=== PATIENT | female | born 1945 | race Caucasian/White ===

== ENCOUNTER → 2017-02-13 | Outpatient (CLI) | payer MEDICARE ==
[~2017-02-13] MED LIST: CLON0.2T PO; CYAN1TAB29 PO; GLUC-88 PO; LOSA25TA5 PO; LOVA20TA2 PO; MULT-717 PO
[2017-02-13 10:44] LABS: ASPARTATE AMINO TRANSFERASE 16 U/L (15-37); BLOOD UREA NITROGEN 25 mg/dL (7-18)
== END | disposition home or self-care (01) ==
LOC: STAR 09:16
PROVIDERS: ATTEND Surgery
DX: Z01.818 Encounter for other preprocedural examination (principal); I51.7 Cardiomegaly
CPT/HCPCS: 36415; 71020; 80053; 85025; 93005

== ENCOUNTER 2017-02-27 05:56 | Day surgery (SDC) | payer MEDICARE ==
[~2017-02-27] VITALS: Ht 157.5 cm; Wt 76.0 kg
[2017-02-27] MEDS ORDERED: BUPIVACAINE/PF-EPI 0.5% 1:200K ONE (06:10)
[2017-02-27] MEDS ORDERED: LACTATED RINGERS 1,000 ML IV SCH (06:12)
[2017-02-27 06:24] VITALS: BP 131/83
[2017-02-27] MEDS ORDERED: FENTANYL PF 250 MCG/5ML ONE (07:14)
[2017-02-27] MEDS ORDERED: BUPIVACAINE/PF 0.5% ONE (07:26)
[2017-02-27] MEDS ORDERED: HYDROcodone/APAP 7.5-325MG/15ML UDC PO PRN (07:30)
[2017-02-27] MEDS ORDERED: LABETALOL 5MG/ML, 20ML IV PRN (07:30)
[2017-02-27] MEDS ORDERED: EPHEDRINE 50 MG/ML, 1ML IVPush PRN (07:30)
[2017-02-27] MEDS ORDERED: HYDROmorphone 1 MG/ML, 1ML IV PRN (07:30)
[2017-02-27] MEDS ORDERED: FENTANYL PF 100 MCG/2ML IV PRN (07:30)
[2017-02-27] MEDS ORDERED: PROMETHAZINE 25 MG/ML, 1ML IV PRN (07:30)
[2017-02-27] MEDS ORDERED: OXYcodone 5 MG/5 ML ORAL.SOL UDC PO PRN (07:30)
[2017-02-27] MEDS ORDERED: ONDANSETRON 2MG/ML, 2ML IVPush PRN (07:30)
[2017-02-27] MEDS ORDERED: hydrALAzine 20 MG/ML, 1ML IV PRN (07:30)
[2017-02-27] MEDS ORDERED: ACETAMINOPHEN 325 MG TABLET PO PRN (07:30)
[2017-02-27] MEDS ORDERED: ACETAMINOPHEN 325 MG TABLET ONE (08:25)
[2017-02-27] MEDS ORDERED: OXYcodone 5 MG/5 ML ORAL.SOL UDC ONE (08:26)
[2017-02-27] MEDS ORDERED: PROPOFOL 10 MG/ML, 20ML ONE (10:59)
[2017-02-27] MEDS ORDERED: SUCCINYLCHOLINE 20 MG/ML, 10ML ONE (10:59)
[2017-02-27] MEDS ORDERED: KETOROLAC 30 MG/1 ML ONE (10:59)
[2017-02-27] MEDS ORDERED: EPHEDRINE 50 MG/ML, 1ML ONE (10:59)
[2017-02-27] MEDS ORDERED: GLYCOPYRROLATE 0.2MG/1ML ONE (10:59)
[2017-02-27] MEDS ORDERED: NEOSTIGMINE 1 MG/ML, 10ML ONE (10:59)
[2017-02-27] MEDS ORDERED: DEXAMETHASONE 4 MG/ML, 1ML ONE (10:59)
[2017-02-27] MEDS ORDERED: CEFOTETAN 2 GM ONE (10:59)
[2017-02-27] MEDS ORDERED: ROCURONIUM 10 MG/ML ONE (10:59)
[2017-02-27] MEDS ORDERED: ONDANSETRON 2MG/ML, 2ML ONE (10:59)
== END 2017-02-27 11:15 ==
LOC: OUT 05:56
PROVIDERS: ATTEND Surgery
DX: K35.80 Unspecified acute appendicitis (principal); I10 Essential (primary) hypertension; E78.00 Pure hypercholesterolemia, unspecified; E89.0 Postprocedural hypothyroidism; Z87.39 Personal history of other diseases of the musculoskeletal system and connective tissue; Z98.890 Other specified postprocedural states; Z88.8 Allergy status to other drugs, medicaments and biological substances; Z91.018 Allergy to other foods; Z72.89 Other problems related to lifestyle; Z87.891 Personal history of nicotine dependence
CPT/HCPCS: 44970; 88304; J0330; J1100; J1885; J2405; J2704; J2710; J3010; J3490; J7120; S0074

== ENCOUNTER → 2017-11-17 | Outpatient (CLI) | payer MEDICARE ==
[~2017-11-17] MED LIST changes: +OMNIPAQUE 350 MG/ML, 75ML BOTTLE ONE
== END | disposition home or self-care (01) ==
LOC: CFH 08:59
PROVIDERS: ATTEND Nurse Practitioner Primary Care
DX: R93.8 Abnormal findings on diagnostic imaging of other specified body structures (principal); I10 Essential (primary) hypertension; E78.2 Mixed hyperlipidemia; Z86.61 Personal history of infections of the central nervous system
CPT/HCPCS: 71260; 82565; Q9967

== ENCOUNTER 2017-11-25 09:21 | Day surgery (SDC) | payer MEDICARE ==
[2017-11-24 11:13] LABS: BASOPHILS # (AUTO) 0.01 x10^3/uL (0-0.1); BASOPHILS % (AUTO) 0 % (0-1); EOSINOPHILS # (AUTO) 0.04 x10^3/uL (0-0.4); EOSINOPHILS % (AUTO) 0 % (1-7); LYMPHOCYTES # (AUTO) 1.15 x10^3/uL (1-3.4); LYMPHOCYTES % (AUTO) 12 % (22-44); MD NO; MEAN CORPUSCULAR HEMOGLOBIN 29.9 pg (27.0-34.8); MEAN CORPUSCULAR HGB CONC 33.1 g/dL (32.4-35.8); MEAN CORPUSCULAR VOLUME 90.1 fL (80-100); MEAN PLATELET VOLUME 7.5 fL (7.4-10.4); MONOCYTES # (AUTO) 0.09 x10^3/uL (0.2-0.8); MONOCYTES % (AUTO) 1 % (2-9); NEUTROPHILS # (AUTO) 8.39 x10^3/uL (1.8-6.8); NEUTROPHILS % (AUTO) 87 % (42-75); PLATELET COUNT 267 x10^3/uL (130-400); RED BLOOD COUNT 4.77 x10^6/uL (3.82-5.3); RED CELL DISTRIBUTION WIDTH 14.8 % (9.6-15.2)
[2017-11-24 11:22] LABS: INTERNATIONAL NORMALIZED RATIO 0.95 (0.93-1.1); PROTHROMBIN TIME 9.8 Seconds (9.6-11.5)
[~2017-11-25] VITALS: Ht 157.5 cm; Wt 77.2 kg
[~2017-11-25 09:21] MED LIST changes: +LIDOCAINE 2%, 20ML ONE; +LIDOCAINE 4% TOPICAL SOLUTION 50 ML ONE; +LIDOCAINE GEL 2%, 5ML ONE; -OMNIPAQUE 350 MG/ML, 75ML BOTTLE ONE
[2017-11-25 09:52] VITALS: BP 105/98
[2017-11-25] MEDS ORDERED: SODIUM CHLORIDE 0.9% 1,000 ML IV SCH (09:55)
[2017-11-25] MEDS ORDERED: FENTANYL PF 100 MCG/2ML ONE (11:28)
[2017-11-25] MEDS ORDERED: MIDAZOLAM 1 MG/ML, 2ML ONE (11:28)
[2017-11-25] MEDS ORDERED: ALBUTEROL SULFATE 2.5 MG/3 ML ONE (14:10)
[2017-11-25] MEDS ORDERED: ALBUTEROL SULFATE 2.5 MG/3 ML NPPB PRN (14:30)
== END 2017-11-25 15:00 ==
LOC: OUT 09:21
PROVIDERS: ATTEND Internal Medicine
DX: C34.01 Malignant neoplasm of right main bronchus (principal); Z88.2 Allergy status to sulfonamides; Z88.1 Allergy status to other antibiotic agents; Z88.8 Allergy status to other drugs, medicaments and biological substances; Z87.891 Personal history of nicotine dependence
CPT/HCPCS: 31625; 36415; 85025; 85610; 85730; 88172; 88173; 88305; 94640; 99152; 99153; J2250; J3010; J3490

== ENCOUNTER 2017-11-26 09:25 | Inpatient (IN) | payer MEDICARE ==
[~2017-11-26] VITALS: Ht 157.5 cm; Wt 77.9 kg
[~2017-11-26 09:25] MED LIST changes: -LIDOCAINE 2%, 20ML ONE; -LIDOCAINE 4% TOPICAL SOLUTION 50 ML ONE; -LIDOCAINE GEL 2%, 5ML ONE
[2017-11-26] MEDS ORDERED: SODIUM CHLORIDE FLUSH 10ML SYR IVF ONE (10:30)
[2017-11-26 10:58] LABS: BASOPHILS # (AUTO) 0.03 x10^3/uL (0-0.1); BASOPHILS % (AUTO) 0 % (0-1); EOSINOPHILS % (AUTO) 1 % (1-7); LYMPHOCYTES # (AUTO) 1.86 x10^3/uL (1-3.4); LYMPHOCYTES % (AUTO) 22 % (22-44); MD NO; MEAN CORPUSCULAR HEMOGLOBIN 29.8 pg (27.0-34.8); MEAN CORPUSCULAR HGB CONC 33.2 g/dL (32.4-35.8); MEAN CORPUSCULAR VOLUME 89.8 fL (80-100); MEAN PLATELET VOLUME 7.7 fL (7.4-10.4); MONOCYTES # (AUTO) 0.52 x10^3/uL (0.2-0.8); MONOCYTES % (AUTO) 6 % (2-9); NEUTROPHILS # (AUTO) 5.98 x10^3/uL (1.8-6.8); NEUTROPHILS % (AUTO) 70 % (42-75); PLATELET COUNT 264 x10^3/uL (130-400); RED BLOOD COUNT 4.67 x10^6/uL (3.82-5.3); RED CELL DISTRIBUTION WIDTH 14.7 % (9.6-15.2)
[2017-11-26 11:07] LABS: ALBUMIN 3.6 g/dL (3.4-5.0); ANION GAP 7 mmol/L (5-15); CALCIUM 9.3 mg/dL (8.5-10.1); CHLORIDE 107 mmol/L (98-107); CREATININE 1.06 mg/dL (0.55-1.02)
[2017-11-26 11:10] LABS: TROPONIN I < 0.015 ng/mL (0.000-0.045)
[2017-11-26] MEDS ORDERED: OMNIPAQUE 350 MG/ML, 100ML BOTTLE ONE (12:01)
[2017-11-26] MEDS ORDERED: LORazepam 2 MG/ML, 1ML IVPush ONE (13:00)
[2017-11-26] MEDS ORDERED: methylPREDNISolone SOD SUCC 125 MG/2 ML IVPush ONE (13:00)
[2017-11-26] MEDS ORDERED: methylPREDNISolone SOD SUCC 125 MG/2 ML ONE (13:10)
[2017-11-26] MEDS ORDERED: LORazepam 2 MG/ML, 1ML ONE (13:11)
[2017-11-26] MEDS ORDERED: LABETALOL 5MG/ML, 20ML IVPush PRN (14:00)
[2017-11-26] MEDS ORDERED: ONDANSETRON 2MG/ML, 2ML IVPush PRN (14:00)
[2017-11-26] MEDS ORDERED: POLYETHYLENE GLYCOL 17 GM PACKET PO PRN (14:00)
[2017-11-26] MEDS ORDERED: ONDANSETRON ODT 4 MG PO PRN (14:00)
[2017-11-26] MEDS ORDERED: HYDROcodone/APAP 5/325 TABLET PO PRN (14:00)
[2017-11-26 14:42] VITALS: BP 102/66
[2017-11-26] MEDS ORDERED: ALBUTEROL SULFATE 2.5 MG/3 ML NPPB PRN (15:00)
[2017-11-26] MEDS: methylPREDNISolone SOD SUCC 125 MG/2 ML IVPush SCH (18:07)
[2017-11-26 20:00] VITALS: BP 118/77
[2017-11-26] MEDS: FAMOTIDINE 20 MG/2 ML IVPush SCH (20:23)
[2017-11-26] MEDS: LOVASTATIN 20 MG TABLET PO SCH (20:23)
[2017-11-26] MEDS: ENOXAPARIN 40 MG/0.4 ML SQ SCH (20:24)
[2017-11-26 21:20] LABS: CLOSTRIDIUM DIFFICILE ANTIGEN NEGATIVE; CLOSTRIDIUM DIFFICILE TOXIN NEGATIVE (Negative)
[2017-11-27] MEDS: methylPREDNISolone SOD SUCC 125 MG/2 ML IVPush SCH ×2 (00:01→05:57)
[2017-11-27 02:00] VITALS: BP 109/71
[2017-11-27 05:28] LABS: ALBUMIN 3.2 g/dL (3.4-5.0); ANION GAP 8 mmol/L (5-15); CALCIUM 8.9 mg/dL (8.5-10.1); CHLORIDE 108 mmol/L (98-107)
[2017-11-27 05:32] LABS: BASOPHILS # (AUTO) 0.01 x10^3/uL (0-0.1); BASOPHILS % (AUTO) 0 % (0-1); EOSINOPHILS % (AUTO) 0 % (1-7); LYMPHOCYTES # (AUTO) 0.83 x10^3/uL (1-3.4); LYMPHOCYTES % (AUTO) 13 % (22-44); MD NO; MEAN CORPUSCULAR HEMOGLOBIN 30.1 pg (27.0-34.8); MEAN CORPUSCULAR HGB CONC 33.4 g/dL (32.4-35.8); MEAN CORPUSCULAR VOLUME 90.1 fL (80-100); MEAN PLATELET VOLUME 7.7 fL (7.4-10.4); MONOCYTES # (AUTO) 0.14 x10^3/uL (0.2-0.8); MONOCYTES % (AUTO) 2 % (2-9); NEUTROPHILS # (AUTO) 5.57 x10^3/uL (1.8-6.8); NEUTROPHILS % (AUTO) 85 % (42-75); PLATELET COUNT 242 x10^3/uL (130-400); RED BLOOD COUNT 4.41 x10^6/uL (3.82-5.3); RED CELL DISTRIBUTION WIDTH 14.4 % (9.6-15.2)
[2017-11-27 05:59] LABS: ALANINE AMINOTRANSFERASE 34 U/L (12-78); ALKALINE PHOSPHATASE 84 U/L (45-117); BILIRUBIN,TOTAL 0.5 mg/dL (0.2-1.0); CREATININE 1.02 mg/dL (0.55-1.02); TOTAL PROTEIN 7.4 g/dL (6.4-8.2)
[2017-11-27 07:09] VITALS: BP 112/63
[2017-11-27] MEDS ORDERED: GADOBUTROL 7.5 MMOL/7.5 ML PFS ONE (07:58)
[2017-11-27] MEDS ORDERED: [UNRECOGNIZED DRUG - OTHER] PO SCH (09:00)
[2017-11-27] MEDS ORDERED: TEMPLATE NON-FORMULARY MED. (Cyanocobalamin/Folic Acid** (Vitamin B12-Folic Acid Tablet**) PO SCH (09:00)
[2017-11-27 09:38] VITALS: BP 148/82
[2017-11-27] MEDS: MULTIVITAMINS/MINERALS TABLET PO SCH (09:50)
[2017-11-27] MEDS: SENNA/DOCUSATE TABLET PO SCH (09:50)
[2017-11-27] MEDS: LOSARTAN 25MG TABLET PO SCH (09:50)
[2017-11-27] MEDS: FAMOTIDINE 20 MG/2 ML IVPush SCH (09:51)
[2017-11-27 12:50] VITALS: BP 104/64
[2017-11-27 19:19] VITALS: BP 143/76
[2017-11-27] MEDS: LOVASTATIN 20 MG TABLET PO SCH (21:00)
[2017-11-27] MEDS: ENOXAPARIN 40 MG/0.4 ML SQ SCH (21:00)
[2017-11-27] MEDS: FAMOTIDINE 20 MG TABLET PO SCH (21:00)
[2017-11-28 01:30] VITALS: BP 135/73
[2017-11-28 04:52] LABS: ALBUMIN 3.2 g/dL (3.4-5.0); ANION GAP 8 mmol/L (5-15); CALCIUM 9.2 mg/dL (8.5-10.1); CHLORIDE 109 mmol/L (98-107); CREATININE 0.89 mg/dL (0.55-1.02)
[2017-11-28 05:12] LABS: BASOPHILS # (AUTO) 0.02 x10^3/uL (0-0.1); BASOPHILS % (AUTO) 0 % (0-1); EOSINOPHILS % (AUTO) 0 % (1-7); LYMPHOCYTES # (AUTO) 1.62 x10^3/uL (1-3.4); LYMPHOCYTES % (AUTO) 12 % (22-44); MD NO; MEAN CORPUSCULAR HEMOGLOBIN 29.9 pg (27.0-34.8); MEAN CORPUSCULAR HGB CONC 33.2 g/dL (32.4-35.8); MEAN CORPUSCULAR VOLUME 89.9 fL (80-100); MEAN PLATELET VOLUME 7.6 fL (7.4-10.4); MONOCYTES # (AUTO) 0.59 x10^3/uL (0.2-0.8); MONOCYTES % (AUTO) 4 % (2-9); NEUTROPHILS % (AUTO) 84 % (42-75); PLATELET COUNT 252 x10^3/uL (130-400); RED BLOOD COUNT 4.23 x10^6/uL (3.82-5.3); RED CELL DISTRIBUTION WIDTH 14.8 % (9.6-15.2)
[2017-11-28] MEDS ORDERED: POTASSIUM CHLORIDE 20 MEQ TAB.ER.PRT PO ONE ×2 (06:30→10:30)
[2017-11-28 07:35] VITALS: BP 140/75
[2017-11-28] MEDS: SENNA/DOCUSATE TABLET PO SCH (07:48)
[2017-11-28] MEDS: FAMOTIDINE 20 MG TABLET PO SCH (07:48)
[2017-11-28] MEDS: LOSARTAN 25MG TABLET PO SCH (07:48)
[2017-11-28] MEDS: MULTIVITAMINS/MINERALS TABLET PO SCH (07:48)
[2017-11-28] MEDS ORDERED: GUAIFENESIN/DM 200-20MG, 10ML UDC PO PRN (09:30)
[2017-11-28] MEDS ORDERED: PRED10TA PO (11:41)
[2017-11-28] MEDS ORDERED: IPRA3AMP INH (11:43)
== END 2017-11-28 13:20 | disposition home or self-care (01) | DRG 180 ==
LOC: ED 12:24 → EDIP 13:08 → 3NW 13:42 → DCLOUNGE 11-28 12:49
PROVIDERS: ADMIT Hospitalist; ATTEND Hospitalist
DX: C34.90 Malignant neoplasm of unspecified part of unspecified bronchus or lung (principal); J96.01 Acute respiratory failure with hypoxia; I31.3 Pericardial effusion (noninflammatory); J44.1 Chronic obstructive pulmonary disease with (acute) exacerbation; E78.5 Hyperlipidemia, unspecified; R19.7 Diarrhea, unspecified; M19.90 Unspecified osteoarthritis, unspecified site; I10 Essential (primary) hypertension; Z66 Do not resuscitate; Z80.1 Family history of malignant neoplasm of trachea, bronchus and lung; Z82.49 Family history of ischemic heart disease and other diseases of the circulatory system; Z87.891 Personal history of nicotine dependence; Z90.49 Acquired absence of other specified parts of digestive tract; Z88.8 Allergy status to other drugs, medicaments and biological substances
CPT/HCPCS: 36415; 70553; 71275; 80048; 80053; 82040; 83735; 83880; 84100; 84439; 84484; 85025; 87324; 89055; 93005; 93306; 94640; 96374; 96375; A9585; J1650; J7613; Q9967; J2060; J2930; J7512; S0028

== ENCOUNTER → 2017-12-02 | Outpatient (CLI) | payer MEDICARE ==
[~2017-12-02] MED LIST changes: +IPRA3AMP INH; +PRED10TA PO
== END | disposition home or self-care (01) ==
LOC: ROC 10:38
PROVIDERS: ATTEND Radiology Radiation Oncology
DX: C34.90 Malignant neoplasm of unspecified part of unspecified bronchus or lung (principal); I10 Essential (primary) hypertension; F41.9 Anxiety disorder, unspecified; E78.5 Hyperlipidemia, unspecified
CPT/HCPCS: G0463

== ENCOUNTER → 2017-12-08 | Outpatient (CLI) | payer MEDICARE | LOC: RAD 12:42 | PROVIDERS: ATTEND Nurse Practitioner | DX: R91.8 Other nonspecific abnormal finding of lung field (principal); R06.02 Shortness of breath; R05 Cough; Z85.118 Personal history of other malignant neoplasm of bronchus and lung | CPT/HCPCS: 71046 ==

== ENCOUNTER → 2018-01-09 | Outpatient (CLI) | payer MEDICARE ==
[2018-01-09 13:01] LABS: CULTURE INDICATED? YES; MICROSCOPIC INDICATED
== END ==
LOC: CFH 10:46
PROVIDERS: ATTEND Radiology Radiation Oncology
DX: C34.11 Malignant neoplasm of upper lobe, right bronchus or lung (principal); R35.0 Frequency of micturition
CPT/HCPCS: 81001; 87077; 87086; 87186

== ENCOUNTER 2018-02-07 21:45 | Emergency (ER) | payer MEDICARE ==
[~2018-02-07] VITALS: Ht 157.5 cm; Wt 75.0 kg
[~2018-02-07 21:45] MED LIST changes: +CEFD300C37 PO; +CETI10TA24 PO; +HYDR12.58 PO; +LOSA1TAB7 PO; +METO25TA35 PO
[2018-02-07] MEDS ORDERED: HYDROcodone/APAP 5/325 TABLET PO ONE (22:30)
[2018-02-07] MEDS ORDERED: HYDROcodone/APAP 5/325 TABLET ONE (22:35)
[2018-02-07 23:43] VITALS: BP 111/48
== END 2018-02-07 23:52 | disposition home or self-care (01) ==
LOC: ED 22:17
DX: M54.2 Cervicalgia (principal); I10 Essential (primary) hypertension; J44.9 Chronic obstructive pulmonary disease, unspecified
CPT/HCPCS: 70450; 99284

== ENCOUNTER → 2018-03-10 | Outpatient (CLI) | payer MEDICARE ==
[~2018-03-10] MED LIST changes: +OMNIPAQUE 350 MG/ML, 100ML BOTTLE ONE
== END | disposition home or self-care (01) ==
LOC: CFH 11:02
PROVIDERS: ATTEND Radiology Radiation Oncology
DX: J98.11 Atelectasis (principal); C34.11 Malignant neoplasm of upper lobe, right bronchus or lung
CPT/HCPCS: 71260; Q9967

== ENCOUNTER → 2018-03-11 | Outpatient (CLI) | payer MEDICARE ==
[~2018-03-11] MED LIST changes: -OMNIPAQUE 350 MG/ML, 100ML BOTTLE ONE
== END | disposition home or self-care (01) ==
LOC: ROC 07:38
PROVIDERS: ATTEND Radiology Radiation Oncology
DX: Z08 Encounter for follow-up examination after completed treatment for malignant neoplasm (principal); C34.11 Malignant neoplasm of upper lobe, right bronchus or lung
CPT/HCPCS: G0463

== ENCOUNTER 2018-05-14 11:20 | Emergency (ER) | payer MEDICARE ==
[~2018-05-14] VITALS: Ht 157.5 cm; Wt 72.6 kg
[~2018-05-14 11:20] MED LIST changes: -IPRA3AMP INH; +IPRA3AMP30 INH
[2018-05-14 12:22] LABS: BASOPHILS # (AUTO) 0.03 x10^3/uL (0-0.1); BASOPHILS % (AUTO) 1 % (0-1); EOSINOPHILS # (AUTO) 0.35 x10^3/uL (0-0.4); EOSINOPHILS % (AUTO) 6 % (1-7); LYMPHOCYTES # (AUTO) 0.81 x10^3/uL (1-3.4); LYMPHOCYTES % (AUTO) 13 % (22-44); MD NO; MEAN CORPUSCULAR HGB CONC 33.7 g/dL (32.4-35.8); MEAN CORPUSCULAR VOLUME 94.8 fL (80-100); MEAN PLATELET VOLUME 7.4 fL (7.4-10.4); MONOCYTES # (AUTO) 0.56 x10^3/uL (0.2-0.8); MONOCYTES % (AUTO) 9 % (2-9); NEUTROPHILS # (AUTO) 4.67 x10^3/uL (1.8-6.8); NEUTROPHILS % (AUTO) 73 % (42-75); PLATELET COUNT 339 x10^3/uL (130-400); RED BLOOD COUNT 3.39 x10^6/uL (3.82-5.3); RED CELL DISTRIBUTION WIDTH 17.3 % (9.6-15.2)
[2018-05-14 12:30] LABS: ALANINE AMINOTRANSFERASE 16 U/L (12-78); ANION GAP 9 mmol/L (5-15); CALCIUM 8.9 mg/dL (8.5-10.1); CHLORIDE 104 mmol/L (98-107); CREATININE 0.99 mg/dL (0.55-1.02)
[2018-05-14 12:34] LABS: ALKALINE PHOSPHATASE 86 U/L (45-117); BILIRUBIN,TOTAL 0.3 mg/dL (0.2-1.0); TOTAL PROTEIN 7.6 g/dL (6.4-8.2); TROPONIN I < 0.015 ng/mL (0.000-0.045)
[2018-05-14 12:35] LABS: D-DIMER 1.33 ug/mlFEU (0.00-0.52); INTERNATIONAL NORMALIZED RATIO 1.04 (0.93-1.1); PROTHROMBIN TIME 10.7 Seconds (9.6-11.5)
[2018-05-14] MEDS ORDERED: OMNIPAQUE 350 MG/ML, 100ML BOTTLE ONE (13:32)
[2018-05-14] MEDS ORDERED: ONDANSETRON ODT 4 MG ONE (14:02)
[2018-05-14] MEDS ORDERED: KETOROLAC 30 MG/1 ML ONE (14:02)
[2018-05-14 14:20] VITALS: BP 130/85
[2018-05-14] MEDS ORDERED: DOXYCYCLINE 100MG TABLET PO ONE (14:30)
[2018-05-14] MEDS ORDERED: DOXYCYCLINE 100MG TABLET ONE (14:33)
== END 2018-05-14 14:42 | disposition home or self-care (01) ==
LOC: ED 13:52
DX: S22.39XA Fracture of one rib, unspecified side, initial encounter for closed fracture (principal); J15.9 Unspecified bacterial pneumonia; I10 Essential (primary) hypertension; E11.9 Type 2 diabetes mellitus without complications; X58.XXXA Exposure to other specified factors, initial encounter; Y93.9 Activity, unspecified; Y99.8 Other external cause status; Y92.89 Other specified places as the place of occurrence of the external cause
CPT/HCPCS: 36415; 71046; 71275; 80053; 83880; 84484; 85025; 85379; 85610; 85730; 93005; 99285; Q9967

== ENCOUNTER 2018-05-20 07:31 | Inpatient (IN) | payer MEDICARE ==
[~2018-05-20] VITALS: Ht 157.5 cm; Wt 72.6 kg
[2018-05-20] MEDS ORDERED: SODIUM CHLORIDE 0.9% 1,000 ML IV ONE (08:14)
[2018-05-20] MEDS ORDERED: SODIUM CHLORIDE FLUSH 10ML SYR IVF ONE (08:30)
[2018-05-20 08:49] LABS: BASOPHILS # (AUTO) 0.01 x10^3/uL (0-0.1); BASOPHILS % (AUTO) 0 % (0-1); EOSINOPHILS # (AUTO) 0.37 x10^3/uL (0-0.4); EOSINOPHILS % (AUTO) 4 % (1-7); LYMPHOCYTES # (AUTO) 0.59 x10^3/uL (1-3.4); LYMPHOCYTES % (AUTO) 7 % (22-44); MD NO; MEAN CORPUSCULAR HEMOGLOBIN 30.8 pg (27.0-34.8); MEAN CORPUSCULAR VOLUME 93.3 fL (80-100); MEAN PLATELET VOLUME 7.3 fL (7.4-10.4); MONOCYTES # (AUTO) 0.57 x10^3/uL (0.2-0.8); MONOCYTES % (AUTO) 7 % (2-9); NEUTROPHILS # (AUTO) 7.25 x10^3/uL (1.8-6.8); NEUTROPHILS % (AUTO) 82 % (42-75); PLATELET COUNT 376 x10^3/uL (130-400); RED BLOOD COUNT 3.64 x10^6/uL (3.82-5.3); RED CELL DISTRIBUTION WIDTH 17.3 % (9.6-15.2)
[2018-05-20 08:59] LABS: ALANINE AMINOTRANSFERASE 17 U/L (12-78); ALBUMIN 2.9 g/dL (3.4-5.0); ANION GAP 9 mmol/L (5-15); CALCIUM 9.7 mg/dL (8.5-10.1); CHLORIDE 106 mmol/L (98-107)
[2018-05-20 09:03] LABS: ALKALINE PHOSPHATASE 83 U/L (45-117); BILIRUBIN,TOTAL 0.4 mg/dL (0.2-1.0); TOTAL PROTEIN 7.7 g/dL (6.4-8.2); TROPONIN I < 0.015 ng/mL (0.000-0.045)
[2018-05-20] MEDS ORDERED: GADOBUTROL 7.5 MMOL/7.5 ML PFS ONE (09:39)
[2018-05-20] MEDS ORDERED: AZITHROMYCIN 500 MG in SODIUM CHLORIDE 0.9% 250 ML IVPB ONE (11:00)
[2018-05-20] MEDS ORDERED: CEFTRIAXONE 1,000 MG in SODIUM CHLORIDE 0.9% 50 ML IVPB ONE (11:00)
[2018-05-20] MEDS ORDERED: CEFTRIAXONE PMX 1GM/50ML 50 ML ONE (11:23)
[2018-05-20] MEDS ORDERED: SODIUM CHLORIDE FLUSH 10ML SYR IVF PRN (11:30)
[2018-05-20] MEDS ORDERED: METO25TA35 PO (11:42)
[2018-05-20] MEDS ORDERED: ENALAPRILAT 1.25 MG/ML, 2ML IVPush PRN (12:30)
[2018-05-20] MEDS: ENOXAPARIN 40 MG/0.4 ML SQ SCH (12:30)
[2018-05-20] MEDS ORDERED: TEMAZEPAM 15 MG CAPSULE PO PRN (12:30)
[2018-05-20] MEDS ORDERED: ACETAMINOPHEN 325 MG TABLET PO PRN (12:30)
[2018-05-20] MEDS ORDERED: ONDANSETRON ODT 4 MG PO PRN (12:30)
[2018-05-20] MEDS ORDERED: DOCUSATE 100 MG CAPSULE PO PRN (12:30)
[2018-05-20] MEDS ORDERED: ONDANSETRON 2MG/ML, 2ML IVPush PRN (12:30)
[2018-05-20] MEDS ORDERED: LABETALOL 5MG/ML, 20ML IVPush PRN (12:30)
[2018-05-20] MEDS ORDERED: BISACODYL 10 MG SUPP PR PRN (12:30)
[2018-05-20 12:43] VITALS: BP 105/67
[2018-05-20] MEDS: SODIUM CHLORIDE 0.9% 1,000 ML IV SCH ×2 (13:27→20:11)
[2018-05-20 14:00] VITALS: BP 105/67
[2018-05-20 19:21] VITALS: BP 123/76
[2018-05-20] MEDS: LOVASTATIN 20 MG TABLET PO SCH (20:02)
[2018-05-20] MEDS: KETOROLAC 30 MG/1 ML IV PRN (20:02)
[2018-05-21 00:40] VITALS: BP 98/60
[2018-05-21] MEDS: KETOROLAC 30 MG/1 ML IV PRN ×2 (04:49→20:46)
[2018-05-21] MEDS: SODIUM CHLORIDE 0.9% 1,000 ML IV SCH ×2 (04:50→17:49)
[2018-05-21 05:03] LABS: ALBUMIN 2.5 g/dL (3.4-5.0); CALCIUM 8.7 mg/dL (8.5-10.1); CHLORIDE 111 mmol/L (98-107)
[2018-05-21 05:17] LABS: ANION GAP 6 mmol/L (5-15); CREATININE 0.95 mg/dL (0.55-1.02)
[2018-05-21 05:18] LABS: ALANINE AMINOTRANSFERASE 13 U/L (12-78); ALKALINE PHOSPHATASE 72 U/L (45-117); BILIRUBIN,TOTAL 0.8 mg/dL (0.2-1.0); TOTAL PROTEIN 6.6 g/dL (6.4-8.2)
[2018-05-21 05:32] LABS: BASOPHILS # (AUTO) 0.02 x10^3/uL (0-0.1); BASOPHILS % (AUTO) 1 % (0-1); EOSINOPHILS # (AUTO) 0.45 x10^3/uL (0-0.4); EOSINOPHILS % (AUTO) 10 % (1-7); LYMPHOCYTES # (AUTO) 0.71 x10^3/uL (1-3.4); LYMPHOCYTES % (AUTO) 17 % (22-44); MD NO; MEAN CORPUSCULAR HEMOGLOBIN 31.6 pg (27.0-34.8); MEAN CORPUSCULAR HGB CONC 33.6 g/dL (32.4-35.8); MEAN PLATELET VOLUME 7.6 fL (7.4-10.4); MONOCYTES # (AUTO) 0.48 x10^3/uL (0.2-0.8); MONOCYTES % (AUTO) 11 % (2-9); NEUTROPHILS # (AUTO) 2.64 x10^3/uL (1.8-6.8); NEUTROPHILS % (AUTO) 61 % (42-75); PLATELET COUNT 334 x10^3/uL (130-400); RED BLOOD COUNT 3.21 x10^6/uL (3.82-5.3); RED CELL DISTRIBUTION WIDTH 16.8 % (9.6-15.2)
[2018-05-21] MEDS ORDERED: MAGNESIUM SULFATE PMX 2GM/50ML 50 ML IV ONE (07:30)
[2018-05-21] MEDS ORDERED: POTASSIUM CHLORIDE 20 MEQ TAB.ER.PRT PO ONE (07:30)
[2018-05-21 07:35] VITALS: BP 139/85
[2018-05-21] MEDS: CEFTRIAXONE 1,000 MG in SODIUM CHLORIDE 0.9% 50 ML IV SCH (08:41)
[2018-05-21] MEDS: SENNA/DOCUSATE TABLET PO SCH (08:55)
[2018-05-21] MEDS ORDERED: METOPROLOL TARTRATE 25 MG TABLET PO SCH (09:00)
[2018-05-21] MEDS: ENOXAPARIN 40 MG/0.4 ML SQ SCH (09:38)
[2018-05-21] MEDS ORDERED: AZITHROMYCIN 500 MG in SODIUM CHLORIDE 0.9% 250 ML IV SCH ×2 (10:00→15:00)
[2018-05-21 13:37] VITALS: BP 120/76
[2018-05-21 20:09] VITALS: BP 122/75
[2018-05-21] MEDS: LOVASTATIN 20 MG TABLET PO SCH (20:46)
[2018-05-21] MEDS: METOPROLOL TARTRATE 25 MG TABLET PO SCH (21:43)
[2018-05-22 01:03] VITALS: BP 99/59
[2018-05-22 03:30] LABS: CLOSTRIDIUM DIFFICILE ANTIGEN NEGATIVE; CLOSTRIDIUM DIFFICILE TOXIN NEGATIVE (Negative)
[2018-05-22] MEDS: SODIUM CHLORIDE 0.9% 1,000 ML IV SCH (03:31)
[2018-05-22 05:15] LABS: ANION GAP 8 mmol/L (5-15); CALCIUM 8.8 mg/dL (8.5-10.1); CHLORIDE 114 mmol/L (98-107); CREATININE 0.66 mg/dL (0.55-1.02)
[2018-05-22 08:10] VITALS: BP 128/79
[2018-05-22] MEDS: SENNA/DOCUSATE TABLET PO SCH (09:00)
[2018-05-22] MEDS ORDERED: AZIT500T5 PO (09:15)
[2018-05-22] MEDS ORDERED: CEFD300C37 PO (09:15)
[2018-05-22] MEDS: CEFTRIAXONE 1,000 MG in SODIUM CHLORIDE 0.9% 50 ML IV SCH (09:49)
[2018-05-22] MEDS: METOPROLOL TARTRATE 25 MG TABLET PO SCH (09:49)
== END 2018-05-22 11:29 | disposition home or self-care (01) | DRG 194 ==
LOC: ED 11:08 → EDIP 11:25 → 3NW 12:26 → DCLOUNGE 05-22 11:24
PROVIDERS: ADMIT Hospitalist; ATTEND Hospitalist
DX: J15.9 Unspecified bacterial pneumonia (principal); M48.54XA Collapsed vertebra, not elsewhere classified, thoracic region, initial encounter for fracture; E44.0 Moderate protein-calorie malnutrition; Z87.891 Personal history of nicotine dependence; D63.8 Anemia in other chronic diseases classified elsewhere; E88.09 Other disorders of plasma-protein metabolism, not elsewhere classified; R73.9 Hyperglycemia, unspecified; I10 Essential (primary) hypertension; E83.42 Hypomagnesemia; E87.6 Hypokalemia; R53.81 Other malaise; I34.0 Nonrheumatic mitral (valve) insufficiency; M25.78 Osteophyte, vertebrae; M51.34 Other intervertebral disc degeneration, thoracic region; Z80.1 Family history of malignant neoplasm of trachea, bronchus and lung; Z82.49 Family history of ischemic heart disease and other diseases of the circulatory system; Z85.118 Personal history of other malignant neoplasm of bronchus and lung; Z92.21 Personal history of antineoplastic chemotherapy; Z92.3 Personal history of irradiation
CPT/HCPCS: 36415; 71046; 72157; 80048; 80053; 83605; 83735; 83880; 84100; 84145; 84443; 84484; 85025; 87040; 87324; 93005; 93306; 96365; 99285; A9585; J0456; J0696; J1885; J3475; J7030; J7050

== ENCOUNTER → 2018-06-18 | Outpatient (CLI) | payer MEDICARE ==
[~2018-06-18] MED LIST changes: +AZIT500T5 PO; -LOSA25TA5 PO; +LOSA25TA6 PO
== END | disposition home or self-care (01) ==
LOC: ROC 10:30
PROVIDERS: ATTEND Radiology Radiation Oncology
DX: C34.11 Malignant neoplasm of upper lobe, right bronchus or lung (principal)
CPT/HCPCS: G0463

== ENCOUNTER → 2018-09-23 | Outpatient (CLI) | payer MEDICARE ==
[~2018-09-23] MED LIST changes: -HYDR12.58 PO; +HYDROCHLOROTH12.5 MG PO
== END | disposition home or self-care (01) ==
LOC: CFH 11:40
PROVIDERS: ATTEND Radiology Radiation Oncology
DX: C34.11 Malignant neoplasm of upper lobe, right bronchus or lung (principal); M51.36 Other intervertebral disc degeneration, lumbar region; M48.54XD Collapsed vertebra, not elsewhere classified, thoracic region, subsequent encounter for fracture with routine healing; I10 Essential (primary) hypertension
CPT/HCPCS: 71250

== ENCOUNTER → 2018-09-24 | Outpatient (CLI) | payer MEDICARE | END | disposition home or self-care (01) | LOC: ROC 07:31 | PROVIDERS: ATTEND Radiology Radiation Oncology | DX: Z08 Encounter for follow-up examination after completed treatment for malignant neoplasm (principal); C34.11 Malignant neoplasm of upper lobe, right bronchus or lung | CPT/HCPCS: G0463 ==

== ENCOUNTER → 2018-10-28 | Outpatient (CLI) | payer MEDICARE ==
[~2018-10-28] MED LIST changes: +GADOBUTROL 7.5 MMOL/7.5 ML PFS ONE; +LOSA25TA25 PO; -LOSA25TA6 PO
== END | disposition home or self-care (01) ==
LOC: CFH 14:55
PROVIDERS: ATTEND Physician Assistant
DX: S22.000G Wedge compression fracture of unspecified thoracic vertebra, subsequent encounter for fracture with delayed healing (principal); M47.814 Spondylosis without myelopathy or radiculopathy, thoracic region; M51.24 Other intervertebral disc displacement, thoracic region; X58.XXXD Exposure to other specified factors, subsequent encounter
CPT/HCPCS: 72157; A9585

== ENCOUNTER → 2018-12-16 | Outpatient (CLI) | payer MEDICARE ==
[~2018-12-16] MED LIST changes: -GADOBUTROL 7.5 MMOL/7.5 ML PFS ONE
== END | disposition home or self-care (01) ==
LOC: CFH 10:32
PROVIDERS: ATTEND Radiology Radiation Oncology
DX: J70.0 Acute pulmonary manifestations due to radiation (principal); C34.11 Malignant neoplasm of upper lobe, right bronchus or lung
CPT/HCPCS: 71250

== ENCOUNTER → 2018-12-18 | Outpatient (CLI) | payer MEDICARE | END | disposition home or self-care (01) | LOC: ROC 07:49 | PROVIDERS: ATTEND Radiology Radiation Oncology | DX: Z08 Encounter for follow-up examination after completed treatment for malignant neoplasm (principal); C34.11 Malignant neoplasm of upper lobe, right bronchus or lung; Z79.899 Other long term (current) drug therapy; Z92.3 Personal history of irradiation | CPT/HCPCS: G0463 ==

== ENCOUNTER 2019-01-27 20:20 | Inpatient (IN) | payer MEDICARE ==
[~2019-01-27] VITALS: Ht 157.5 cm; Wt 75.9 kg
[2019-01-27] MEDS ORDERED: SODIUM CHLORIDE FLUSH 10ML SYR IVF ONE (20:30)
--- NOTE | 2019-01-27 20:52 | NUR ---
IV STARTED AND PT TAKEN TO CT WITH TECH. PT C/O TO RN ABOUT EVERYTHING, INCLUDING PUTTING GOWN ON, IV START AND GOING TO RADIOLOGY FOR XRAY. PT INFORMED THAT SHE CAN REFUSE TREATMENT AT ANYTIME. PT AGREED TO GO TO XRAY WITH TECH.
[2019-01-27 21:16] LABS: MEAN CORPUSCULAR HEMOGLOBIN 29.8 pg (27.0-34.8); MEAN CORPUSCULAR HGB CONC 34.2 g/dL (32.4-35.8); MEAN PLATELET VOLUME 7.7 fL (7.4-10.4); PLATELET COUNT 181 x10^3/uL (130-400); RED BLOOD COUNT 4.22 x10^6/uL (3.82-5.3); RED CELL DISTRIBUTION WIDTH 15.7 % (9.6-15.2)
[2019-01-27 21:27] LABS: ALBUMIN 3.2 g/dL (3.4-5.0); ANION GAP 11 mmol/L (5-15); CALCIUM 8.6 mg/dL (8.5-10.1); CHLORIDE 108 mmol/L (98-107)
[2019-01-27] MEDS ORDERED: ACID1TAB7 PO (21:31)
[2019-01-27] MEDS ORDERED: LOSA1TAB2 PO (21:31)
[2019-01-27] MEDS ORDERED: IBUP-1623 PO (21:31)
[2019-01-27] MEDS ORDERED: METO25TA35 PO (21:31)
[2019-01-27] MEDS ORDERED: DOXY100T9 PO (21:31)
[2019-01-27] MEDS ORDERED: GLUC750C PO (21:31)
[2019-01-27] MEDS ORDERED: LOVA20TA2 PO (21:31)
[2019-01-27] MEDS ORDERED: TRAM50TA2 PO (21:31)
[2019-01-27] MEDS ORDERED: OMEP-110 PO (21:31)
[2019-01-27] MEDS ORDERED: PRED2.5T PO (21:31)
[2019-01-27] MEDS ORDERED: NITR100C PO (21:31)
[2019-01-27] MEDS ORDERED: SODIUM CHLORIDE 0.9% 1,000 ML IV ONE ×2 (21:33→23:42)
[2019-01-27 21:45] LABS: ALBUMIN 3.2 g/dL (3.4-5.0); ANION GAP 11 mmol/L (5-15); CALCIUM 8.6 mg/dL (8.5-10.1); CHLORIDE 108 mmol/L (98-107)
[2019-01-27 21:51] LABS: BASOPHILS % (AUTO) 0 % (0-1); EOSINOPHILS # (AUTO) 0.02 x10^3/uL (0-0.4); EOSINOPHILS % (AUTO) 0 % (1-7); LYMPHOCYTES # (AUTO) 0.05 x10^3/uL (1-3.4); LYMPHOCYTES % (AUTO) 1 % (22-44); MD SCAN; MONOCYTES # (AUTO) 0.09 x10^3/uL (0.2-0.8); MONOCYTES % (AUTO) 1 % (2-9); NEUTROPHILS # (AUTO) 6.03 x10^3/uL (1.8-6.8); NEUTROPHILS % (AUTO) 97 % (42-75)
[2019-01-27 21:52] LABS: INTERNATIONAL NORMALIZED RATIO 1.07 (0.93-1.1); PROTHROMBIN TIME 11.2 Seconds (9.6-11.5)
[2019-01-27 21:58] LABS: ACETONE, SERUM Small (20mg/dL) mg/dL (Negative)
[2019-01-27] MEDS ORDERED: SODIUM CHLORIDE 0.9% 1,000ML IVBOLUS ONE ×2 (22:00→22:30)
[2019-01-27 22:02] LABS: ALANINE AMINOTRANSFERASE 32 U/L (12-78)
[2019-01-27 22:03] LABS: ALKALINE PHOSPHATASE 130 U/L (45-117); BILIRUBIN,TOTAL 1.1 mg/dL (0.2-1.0); TOTAL PROTEIN 6.9 g/dL (6.4-8.2)
--- NOTE | 2019-01-27 22:17 | NUR ---
NEED IV FOR CTA CHEST
[2019-01-27] MEDS ORDERED: OMNIPAQUE 350 MG/ML, 100ML BOTTLE ONE (22:36)
[2019-01-27] MEDS ORDERED: ACETAMINOPHEN 500 MG TABLET PO ONE (23:00)
[2019-01-27] MEDS ORDERED: ACETAMINOPHEN 500 MG TABLET ONE (23:04)
--- NOTE | 2019-01-27 23:11 | NUR ---
PT MEDICATED FOR FEVER AND INSTRUCTED THAT SHE CANNOT HAVE A WARM BLANKET AT THIS TIME. PT UNDERSTANDS PLAN OF CARE.
[2019-01-27] MEDS ORDERED: PIPERACILLIN/TAZO/PMX 3.375GM 50 ML ONE (23:26)
[2019-01-27] MEDS ORDERED: VANCOMYCIN PER PHARMACY MC ONE (23:30)
[2019-01-27] MEDS ORDERED: PIPERACILLIN/TAZO/PMX 3.375GM 50 ML IV ONE (23:30)
[2019-01-27] MEDS ORDERED: VANCOMYCIN 1,400 MG in SODIUM CHLORIDE 0.9% 250 ML IV ONE (23:30)
[2019-01-28] VITALS (7 sets, daily range): BP systolic 72–96; BP diastolic 42–61
[2019-01-28] MEDS ORDERED: SODIUM CHLORIDE FLUSH 10ML SYR IVF PRN
[2019-01-28] MEDS ORDERED: ONDANSETRON 2MG/ML, 2ML IVPush PRN (00:30)
[2019-01-28] MEDS ORDERED: VANCOMYCIN PER PHARMACY MC PRN (00:30)
[2019-01-28] MEDS ORDERED: ALBUTEROL/IPRATROPIUM 2.5MG/0.5MG, 3 ML HHN PRN (00:30)
[2019-01-28] MEDS ORDERED: ZOSYN PER PHARMACY MC PRN (00:30)
[2019-01-28] MEDS ORDERED: PHARMACOKINETIC MONITORING MC PRN (02:00)
[2019-01-28] MEDS ORDERED: PHARMACOKINETIC CONSULTATION MC ONE (02:00)
[2019-01-28] MEDS: SODIUM CHLORIDE 0.9% 1,000 ML IV SCH ×2 (02:07→14:00)
[2019-01-28] MEDS: PIPERACILLIN/TAZO/PMX 3.375GM 50 ML IV SCH ×4 (05:18→22:38)
[2019-01-28] MEDS ORDERED: SODIUM CHLORIDE 0.9%, 500ML IVBOLUS ONE (13:00)
[2019-01-28 14:48] LABS: MICROSCOPIC NOT IND
[2019-01-28] MEDS: ACETAMINOPHEN 325 MG TABLET PO PRN ×2 (15:18→21:32)
[2019-01-29] VITALS: BP 101/55
[2019-01-29] MEDS ORDERED: DIGOXIN 0.25 MG/ML, 2ML ONE (00:11)
[2019-01-29] MEDS: SODIUM CHLORIDE 0.9% 1,000 ML IV SCH ×2 (00:22→08:40)
[2019-01-29] MEDS ORDERED: DIGOXIN 0.25 MG/ML, 2ML IVPush ONE ×3 (00:30→12:30)
[2019-01-29] MEDS ORDERED: SODIUM CHLORIDE 0.9% 1,000ML IVBOLUS ONE ×2 (01:30→02:30)
[2019-01-29 02:26] VITALS: BP 104/72
[2019-01-29] MEDS ORDERED: METOPROLOL 1 MG/ML, 5ML IVPush ONE (02:30)
[2019-01-29] MEDS: PIPERACILLIN/TAZO/PMX 3.375GM 50 ML IV SCH ×4 (04:53→22:23)
[2019-01-29 06:12] LABS: CHLORIDE 118 mmol/L (98-107)
[2019-01-29 06:13] LABS: FREE T4 (FREE THYROXINE) 1.02 ng/dL (0.76-1.46); TROPONIN I 0.084 ng/mL (0.000-0.045)
[2019-01-29 06:18] LABS: MEAN CORPUSCULAR HEMOGLOBIN 29.9 pg (27.0-34.8); MEAN CORPUSCULAR HGB CONC 33.7 g/dL (32.4-35.8); MEAN CORPUSCULAR VOLUME 88.7 fL (80-100); PLATELET COUNT 172 x10^3/uL (130-400); RED CELL DISTRIBUTION WIDTH 16.6 % (9.6-15.2)
[2019-01-29 06:19] LABS: ALANINE AMINOTRANSFERASE 27 U/L (12-78); ALBUMIN 2.3 g/dL (3.4-5.0); ALKALINE PHOSPHATASE 93 U/L (45-117); ANION GAP 9 mmol/L (5-15); BILIRUBIN,TOTAL 0.6 mg/dL (0.2-1.0); CALCIUM 7.8 mg/dL (8.5-10.1); CREATININE 0.99 mg/dL (0.55-1.02); TOTAL PROTEIN 5.3 g/dL (6.4-8.2); VANCOMYCIN,RANDOM 4.7 mcg/mL
[2019-01-29 06:32] LABS: MD YES
[2019-01-29 06:36] LABS: BAND#(MANUAL) 1.73 x10^3/uL; BANDS%(MANUAL) 25 % (0-7); EOS#(MANUAL) 0.21 x10^3/uL (0.0-0.4); EOS% (MANUAL) 3 % (1-7); LYMPH#(MANUAL) 0.28 x10^3/uL (1-3.4); LYMPHS% (MANUAL) 4 % (22-44); MONOS#(MANUAL) 0.35 x10^3/uL (0.3-2.7); MONOS% (MANUAL) 5 % (2-9); SEG#(MANUAL) 4.35 x10^3/uL (1.8-6.8); SEGS% (MANUAL) 63 % (42-75)
[2019-01-29 06:37] LABS: <PLATELET ESTIMATE> ADEQUATE; <PLT MORPHOLOGY> NORMAL PLT MORPH; <RBC MORPHOLOGY> NORMAL; TOXIC GRAN 1+
[2019-01-29 07:06] VITALS: BP 119/74
[2019-01-29] MEDS: VANCOMYCIN 1,400 MG in SODIUM CHLORIDE 0.9% 250 ML IV SCH (08:58)
[2019-01-29] MEDS: ACETAMINOPHEN 325 MG TABLET PO PRN (09:04)
[2019-01-29 13:21] VITALS: BP 147/83
[2019-01-29] MEDS ORDERED: POTASSIUM CHLORIDE 20 MEQ TAB.ER.PRT PO ONE (17:30)
[2019-01-29] MEDS ORDERED: METOPROLOL TARTRATE 25 MG TABLET PO ONE (17:30)
[2019-01-29] MEDS: LACTOBACILLUS CHEW TABLET PO SCH (17:42)
[2019-01-29 17:46] VITALS: BP 156/84
[2019-01-29 20:28] VITALS: BP 167/89
[2019-01-29] MEDS: LOVASTATIN 20 MG TABLET PO SCH (20:31)
[2019-01-30 01:25] VITALS: BP 131/82
[2019-01-30 04:16] LABS: CALCIUM 8.8 mg/dL (8.5-10.1); CHLORIDE 117 mmol/L (98-107)
[2019-01-30 04:20] LABS: ANION GAP 8 mmol/L (5-15); CREATININE 0.82 mg/dL (0.55-1.02)
[2019-01-30 04:25] LABS: BASOPHILS % (AUTO) 0 % (0-1); EOSINOPHILS # (AUTO) 0.15 x10^3/uL (0-0.4); EOSINOPHILS % (AUTO) 3 % (1-7); LYMPHOCYTES # (AUTO) 0.87 x10^3/uL (1-3.4); LYMPHOCYTES % (AUTO) 16 % (22-44); MD NO; MEAN CORPUSCULAR HEMOGLOBIN 29.8 pg (27.0-34.8); MEAN CORPUSCULAR HGB CONC 33.4 g/dL (32.4-35.8); MEAN CORPUSCULAR VOLUME 89.2 fL (80-100); MEAN PLATELET VOLUME 7.8 fL (7.4-10.4); MONOCYTES # (AUTO) 0.42 x10^3/uL (0.2-0.8); MONOCYTES % (AUTO) 8 % (2-9); NEUTROPHILS # (AUTO) 3.95 x10^3/uL (1.8-6.8); NEUTROPHILS % (AUTO) 73 % (42-75); PLATELET COUNT 174 x10^3/uL (130-400); RED BLOOD COUNT 3.23 x10^6/uL (3.82-5.3)
[2019-01-30] MEDS: PIPERACILLIN/TAZO/PMX 3.375GM 50 ML IV SCH ×4 (05:41→22:28)
[2019-01-30] MEDS: VANCOMYCIN 1,400 MG in SODIUM CHLORIDE 0.9% 250 ML IV SCH (08:31)
[2019-01-30] MEDS: LACTOBACILLUS CHEW TABLET PO SCH ×2 (08:31→17:13)
[2019-01-30] MEDS: METOPROLOL TARTRATE 25 MG TABLET PO SCH (08:31)
[2019-01-30 08:34] VITALS: BP 137/77
[2019-01-30 17:15] VITALS: BP 155/91
[2019-01-30 19:19] VITALS: BP 162/88
[2019-01-30] MEDS: LOVASTATIN 20 MG TABLET PO SCH (21:33)
[2019-01-30 21:51] VITALS: BP 145/88
[2019-01-31 00:15] VITALS: BP 150/82
[2019-01-31] MEDS: PIPERACILLIN/TAZO/PMX 3.375GM 50 ML IV SCH ×4 (05:01→22:50)
[2019-01-31 07:20] VITALS: BP 156/76
[2019-01-31] MEDS: VANCOMYCIN 1,400 MG in SODIUM CHLORIDE 0.9% 250 ML IV SCH (08:06)
[2019-01-31] MEDS: LACTOBACILLUS CHEW TABLET PO SCH ×2 (08:06→17:24)
[2019-01-31] MEDS: METOPROLOL TARTRATE 25 MG TABLET PO SCH (08:07)
[2019-01-31] MEDS: LOSARTAN 25MG TABLET PO SCH (10:34)
[2019-01-31] MEDS: ACETAMINOPHEN 325 MG TABLET PO PRN (14:41)
[2019-01-31 15:26] VITALS: BP 161/83
[2019-01-31 19:25] VITALS: BP 170/94
[2019-01-31 20:54] VITALS: BP 166/89
[2019-01-31] MEDS: LOVASTATIN 20 MG TABLET PO SCH (20:55)
[2019-01-31] MEDS ORDERED: METOPROLOL TARTRATE 25 MG TABLET PO SCH (21:30)
[2019-01-31 22:52] VITALS: BP 168/90
[2019-02-01 01:43] VITALS: BP 159/85
[2019-02-01] MEDS: PIPERACILLIN/TAZO/PMX 3.375GM 50 ML IV SCH ×4 (04:49→23:02)
[2019-02-01 05:14] LABS: HCT (SEDRATE) 33.5 % (34.6-47.8)
[2019-02-01 05:21] LABS: ALANINE AMINOTRANSFERASE 39 U/L (12-78); ANION GAP 9 mmol/L (5-15); CALCIUM 9.1 mg/dL (8.5-10.1); CHLORIDE 109 mmol/L (98-107); CREATININE 0.85 mg/dL (0.55-1.02)
[2019-02-01 05:29] LABS: ALKALINE PHOSPHATASE 136 U/L (45-117); BILIRUBIN,TOTAL 0.6 mg/dL (0.2-1.0); TOTAL PROTEIN 6.4 g/dL (6.4-8.2)
[2019-02-01 06:13] LABS: BASOPHILS # (AUTO) 0.02 x10^3/uL (0-0.1); BASOPHILS % (AUTO) 1 % (0-1); EOSINOPHILS # (AUTO) 0.22 x10^3/uL (0-0.4); EOSINOPHILS % (AUTO) 5 % (1-7); LYMPHOCYTES # (AUTO) 1.03 x10^3/uL (1-3.4); LYMPHOCYTES % (AUTO) 22 % (22-44); MD NO; MEAN CORPUSCULAR HGB CONC 33.4 g/dL (32.4-35.8); MEAN CORPUSCULAR VOLUME 86.9 fL (80-100); MEAN PLATELET VOLUME 7.8 fL (7.4-10.4); MONOCYTES % (AUTO) 11 % (2-9); NEUTROPHILS # (AUTO) 2.89 x10^3/uL (1.8-6.8); NEUTROPHILS % (AUTO) 62 % (42-75); PLATELET COUNT 212 x10^3/uL (130-400); RED BLOOD COUNT 3.86 x10^6/uL (3.82-5.3); RED CELL DISTRIBUTION WIDTH 15.4 % (9.6-15.2)
[2019-02-01 07:30] VITALS: BP 144/92
[2019-02-01] MEDS: ACETAMINOPHEN 325 MG TABLET PO PRN (07:53)
[2019-02-01] MEDS: LACTOBACILLUS CHEW TABLET PO SCH ×2 (08:19→17:29)
[2019-02-01] MEDS: LOSARTAN 25MG TABLET PO SCH (08:20)
[2019-02-01] MEDS: METOPROLOL TARTRATE 25 MG TABLET PO SCH (08:21)
[2019-02-01 13:20] VITALS: BP 150/91
[2019-02-01] MEDS ORDERED: FUROSEMIDE 20 MG/2 ML IV ONE (17:00)
[2019-02-01 20:22] VITALS: BP 144/89
[2019-02-01] MEDS: LOVASTATIN 20 MG TABLET PO SCH (20:33)
[2019-02-02 00:53] VITALS: BP 138/88
[2019-02-02] MEDS: PIPERACILLIN/TAZO/PMX 3.375GM 50 ML IV SCH (05:08)
[2019-02-02 07:03] VITALS: BP 121/80
[2019-02-02] MEDS: ACETAMINOPHEN 325 MG TABLET PO PRN (08:03)
[2019-02-02] MEDS: LACTOBACILLUS CHEW TABLET PO SCH (08:03)
[2019-02-02] MEDS: METOPROLOL TARTRATE 25 MG TABLET PO SCH (08:04)
[2019-02-02] MEDS: LOSARTAN 25MG TABLET PO SCH (08:04)
[2019-02-02] MEDS ORDERED: AMOXICILLIN/CLAV 875-125MG TABLET PO SCH ×2 (11:00→21:00)
[2019-02-02 12:36] VITALS: BP 137/86
[2019-02-02] MEDS ORDERED: AMOX1TAB12 PO (13:53)
[2019-02-02] MEDS ORDERED: LOSA25TA25 PO (13:53)
[2019-02-02] MEDS ORDERED: ONDA4TAB7 PO (13:54)
[2019-02-02] MEDS ORDERED: POTASSIUM CHLORIDE 20 MEQ TAB.ER.PRT PO ONE (14:00)
== END 2019-02-02 16:00 | disposition home or self-care (01) | DRG 871 ==
LOC: ED 23:00 → EDIP 23:42 → 4WST 01-28 01:14 → DCLOUNGE 02-02 15:48
PROVIDERS: ADMIT Internal Medicine; ATTEND Internal Medicine
DX: A41.9 Sepsis, unspecified organism (principal); J18.1 Lobar pneumonia, unspecified organism; J96.01 Acute respiratory failure with hypoxia; C34.90 Malignant neoplasm of unspecified part of unspecified bronchus or lung; J44.0 Chronic obstructive pulmonary disease with (acute) lower respiratory infection; I50.32 Chronic diastolic (congestive) heart failure; N39.0 Urinary tract infection, site not specified; D63.8 Anemia in other chronic diseases classified elsewhere; E03.9 Hypothyroidism, unspecified; E11.9 Type 2 diabetes mellitus without complications; E78.5 Hyperlipidemia, unspecified; I11.0 Hypertensive heart disease with heart failure; Y95 Nosocomial condition; I34.0 Nonrheumatic mitral (valve) insufficiency; I48.91 Unspecified atrial fibrillation; N19 Unspecified kidney failure; M81.0 Age-related osteoporosis without current pathological fracture; K20.9 Esophagitis, unspecified; K04.7 Periapical abscess without sinus; Z66 Do not resuscitate; Z80.1 Family history of malignant neoplasm of trachea, bronchus and lung; Z82.49 Family history of ischemic heart disease and other diseases of the circulatory system; Z85.118 Personal history of other malignant neoplasm of bronchus and lung; Z87.891 Personal history of nicotine dependence; Z90.2 Acquired absence of lung [part of]; Z92.21 Personal history of antineoplastic chemotherapy; Z92.3 Personal history of irradiation; Z90.49 Acquired absence of other specified parts of digestive tract; Z98.51 Tubal ligation status
CPT/HCPCS: 36415; 71045; 71046; 71275; 80048; 80053; 80202; 81003; 82010; 82040; 83605; 83690; 83735; 84145; 84439; 84443; 84484; 85025; 85610; 85651; 85730; 86140; 86632; 86738; 87040; 87070; 87081; 87205; 93005; 93306; 94667; 94668; 96361; 96374; 99291; G0378; J2405; J2543; J3370; Q9967; J1160; J1940; J7030; J7040; J7050

== ENCOUNTER → 2019-02-05 | Outpatient (CLI) | payer MEDICARE ==
[~2019-02-05] MED LIST changes: +ACID1TAB7 PO; +AMOX1TAB12 PO; +DOXY100T9 PO; +GLUC750C PO; +IBUP-1623 PO; +LOSA1TAB2 PO; +NITR100C PO; +OMEP-110 PO; +OMNIPAQUE 350 MG/ML, 100ML BOTTLE ONE; +ONDA4TAB7 PO; +PRED2.5T PO; +TRAM50TA2 PO
== END | disposition home or self-care (01) ==
LOC: CFH 09:04
PROVIDERS: ATTEND Specialist
DX: C34.91 Malignant neoplasm of unspecified part of right bronchus or lung (principal); D17.79 Benign lipomatous neoplasm of other sites; M85.80 Other specified disorders of bone density and structure, unspecified site; M47.819 Spondylosis without myelopathy or radiculopathy, site unspecified; J43.2 Centrilobular emphysema; I51.7 Cardiomegaly; I25.10 Atherosclerotic heart disease of native coronary artery without angina pectoris; I70.0 Atherosclerosis of aorta
CPT/HCPCS: 71260; 74160; Q9967

== ENCOUNTER → 2019-02-25 | Outpatient (CLI) | payer MEDICARE ==
[~2019-02-25] MED LIST changes: -OMNIPAQUE 350 MG/ML, 100ML BOTTLE ONE; +REGADENOSON 0.4 MG/5 ML SYRINGE ONE
== END | disposition home or self-care (01) ==
LOC: CFH 11:55
PROVIDERS: ATTEND Internal Medicine Cardiovascular Disease
DX: I25.10 Atherosclerotic heart disease of native coronary artery without angina pectoris (principal)
CPT/HCPCS: 78452; 93017; A9502; J2785

== ENCOUNTER → 2019-03-10 | Outpatient (CLI) | payer MEDICARE ==
[~2019-03-10] MED LIST changes: -REGADENOSON 0.4 MG/5 ML SYRINGE ONE
== END | disposition home or self-care (01) ==
LOC: ROC 07:55
PROVIDERS: ATTEND Radiology Radiation Oncology
DX: C34.11 Malignant neoplasm of upper lobe, right bronchus or lung (principal)
CPT/HCPCS: G0463

== ENCOUNTER 2019-04-21 12:46 | Outpatient (CLI) | payer MEDICARE ==
[2019-04-21] MEDS ORDERED: OMNIPAQUE 350 MG/ML, 100ML BOTTLE ONE (15:20)
== END 2019-04-21 23:59 | disposition home or self-care (01) ==
LOC: CFH 12:46
PROVIDERS: ATTEND Specialist
DX: C34.91 Malignant neoplasm of unspecified part of right bronchus or lung (principal); N28.1 Cyst of kidney, acquired; J43.9 Emphysema, unspecified; Z79.899 Other long term (current) drug therapy
CPT/HCPCS: 71260; 74160; 82565; Q9967

== ENCOUNTER 2019-07-23 07:45 | Outpatient (CLI) | payer MEDICARE | END 2019-07-23 23:59 | disposition home or self-care (01) | LOC: ROC 07:45 | PROVIDERS: ATTEND Radiology Radiation Oncology | DX: C34.11 Malignant neoplasm of upper lobe, right bronchus or lung (principal) | CPT/HCPCS: G0463 ==

== ENCOUNTER 2019-07-26 10:51 | Outpatient (CLI) | payer MEDICARE ==
[2019-07-26 13:56] LABS: MICROSCOPIC INDICATED
== END 2019-07-26 23:59 | disposition home or self-care (01) ==
LOC: CFH 10:51
PROVIDERS: ATTEND Nurse Practitioner Primary Care
DX: N39.0 Urinary tract infection, site not specified (principal)
CPT/HCPCS: 81001; 87077; 87086; 87186

== ENCOUNTER 2019-11-05 09:01 | Outpatient (CLI) | payer MEDICARE ==
[~2019-11-05 09:01] MED LIST changes: +AZIT500T10 PO; -AZIT500T5 PO; -CETI10TA24 PO; +CETI10TA26 PO; +DOXY-162 PO; -DOXY100T9 PO
[2019-11-05] MEDS ORDERED: OMNIPAQUE 350 MG/ML, 100ML BOTTLE ONE (15:47)
== END 2019-11-05 23:59 | disposition home or self-care (01) ==
LOC: CFH 09:01
PROVIDERS: ATTEND Radiology Radiation Oncology
DX: C34.11 Malignant neoplasm of upper lobe, right bronchus or lung (principal); J84.10 Pulmonary fibrosis, unspecified; J47.9 Bronchiectasis, uncomplicated; M43.16 Spondylolisthesis, lumbar region; M47.816 Spondylosis without myelopathy or radiculopathy, lumbar region
CPT/HCPCS: 71260; 74177; Q9967

== ENCOUNTER → 2019-11-11 | Outpatient (CLI) | payer MEDICARE | END | disposition home or self-care (01) | LOC: ROC 07:04 | PROVIDERS: ATTEND Radiology Radiation Oncology | DX: C34.11 Malignant neoplasm of upper lobe, right bronchus or lung (principal) | CPT/HCPCS: G0463 ==

== ENCOUNTER → 2020-01-31 | Outpatient (CLI) | payer MEDICARE ==
[~2020-01-31] MED LIST changes: +OMNIPAQUE 350 MG/ML, 100ML BOTTLE ONE
== END | disposition home or self-care (01) ==
LOC: CFH 10:15
PROVIDERS: ATTEND Specialist
DX: C34.11 Malignant neoplasm of upper lobe, right bronchus or lung (principal); J43.2 Centrilobular emphysema; I70.0 Atherosclerosis of aorta; I25.10 Atherosclerotic heart disease of native coronary artery without angina pectoris; K76.0 Fatty (change of) liver, not elsewhere classified; N28.1 Cyst of kidney, acquired; M16.0 Bilateral primary osteoarthritis of hip
CPT/HCPCS: 71260; 74177; Q9967

== ENCOUNTER → 2020-02-29 | Outpatient (CLI) | payer MEDICARE ==
[~2020-02-29] MED LIST changes: -OMNIPAQUE 350 MG/ML, 100ML BOTTLE ONE
== END | disposition home or self-care (01) ==
LOC: CFH 10:34
PROVIDERS: ATTEND Internal Medicine Cardiovascular Disease
DX: I36.1 Nonrheumatic tricuspid (valve) insufficiency (principal)
CPT/HCPCS: 93306

== ENCOUNTER → 2020-08-01 | Outpatient (CLI) | payer MEDICARE ==
[~2020-08-01] MED LIST changes: -CETI10TA26 PO; +CETI10TA76 PO; +OMNIPAQUE 350 MG/ML, 100ML BOTTLE ONE
== END | disposition home or self-care (01) ==
LOC: CFH 10:30
PROVIDERS: ATTEND Specialist
DX: C34.11 Malignant neoplasm of upper lobe, right bronchus or lung (principal); J84.10 Pulmonary fibrosis, unspecified; K76.89 Other specified diseases of liver; M51.37 Other intervertebral disc degeneration, lumbosacral region
CPT/HCPCS: 71260; 74177; Q9967

== ENCOUNTER 2020-08-03 07:38 | Outpatient (CLI) | payer MEDICARE ==
[~2020-08-03 07:38] MED LIST changes: -OMNIPAQUE 350 MG/ML, 100ML BOTTLE ONE
== END 2020-08-03 23:59 | disposition home or self-care (01) ==
LOC: ROC 07:38
PROVIDERS: ATTEND Radiology Radiation Oncology
DX: Z08 Encounter for follow-up examination after completed treatment for malignant neoplasm (principal); Z85.118 Personal history of other malignant neoplasm of bronchus and lung
CPT/HCPCS: G0463

== ENCOUNTER → 2020-11-30 | Outpatient (CLI) | payer MEDICARE ==
[~2020-11-30] MED LIST changes: +GADOTERATE 10 MMOL/20ML SYR ONE
== END | disposition home or self-care (01) ==
LOC: RAD 13:05
PROVIDERS: ATTEND Internal Medicine Cardiovascular Disease
DX: G31.89 Other specified degenerative diseases of nervous system (principal); I65.23 Occlusion and stenosis of bilateral carotid arteries; I25.10 Atherosclerotic heart disease of native coronary artery without angina pectoris; M26.641 Arthritis of right temporomandibular joint
CPT/HCPCS: 70553; 93880; A9575

== ENCOUNTER → 2021-01-24 | Outpatient (CLI) | payer MEDICARE ==
[~2021-01-24] MED LIST changes: -GADOTERATE 10 MMOL/20ML SYR ONE; +OMNIPAQUE 350 MG/ML, 100ML BOTTLE ONE
== END | disposition home or self-care (01) ==
LOC: CFH 09:56
PROVIDERS: ATTEND Radiology Radiation Oncology
DX: C34.11 Malignant neoplasm of upper lobe, right bronchus or lung (principal); J84.10 Pulmonary fibrosis, unspecified
CPT/HCPCS: 71260; 74177; Q9967

== ENCOUNTER 2021-01-26 08:25 | Outpatient (CLI) | payer MEDICARE ==
[~2021-01-26 08:25] MED LIST changes: -OMNIPAQUE 350 MG/ML, 100ML BOTTLE ONE
== END 2021-01-26 23:59 | disposition home or self-care (01) ==
LOC: ROC 08:25
PROVIDERS: ATTEND Radiology Radiation Oncology
DX: Z08 Encounter for follow-up examination after completed treatment for malignant neoplasm (principal); Z85.118 Personal history of other malignant neoplasm of bronchus and lung
CPT/HCPCS: G0463